=== PATIENT | male | born 1965 | race Caucasian/White ===

== ENCOUNTER 2016-11-20 20:43 | Inpatient (IN) | payer MEDICAID ==
[~2016-11-20] VITALS: Ht 172.7 cm; Wt 93.3 kg
[~2016-11-20 20:43] MED LIST: ESOM20CA31 PO
[2016-11-20 21:46] LABS: BASOPHILS % (AUTO) 0.6 % (0.0-2.0); EOSINOPHILS % (AUTO) 0.5 % (1.0-6.0); HEMATOCRIT 21.9 % (41-53); LYMPHOCYTES # (AUTO) 1.4 K/uL (1.0-4.8); LYMPHOCYTES % (AUTO) 10.2 % (22.0-44.0); MEAN CORPUSCULAR HEMOGLOBIN 30.7 pg (26.0-34.0); MEAN CORPUSCULAR VOLUME 99 fL (80-100); MONOCYTES # (AUTO) 0.8 K/uL (0.1-1.0); MONOCYTES % (AUTO) 6.3 % (2.0-9.0); NEUTROPHILS % (AUTO) 82.4 % (40.0-70.0); PLATELET COUNT (AUTO) 291 K/uL (150-450); RED BLOOD CELL COUNT(AUTO) 2.21 MIL/uL (4.50-5.90); RED CELL DISTRIBUTION WIDTH 16.9 % (11.5-14.5); WHITE BLOOD COUNT (AUTO) 13.4 K/uL (4.5-11.0)
[2016-11-20 21:51] LABS: HEMOGLOBIN 6.8 g/dL (13.5-17.5)
[2016-11-20 21:53] LABS: INR 1.1 (0.9-1.1); PROTHROMBIN TIME 11.7 SEC (9.4-11.6)
[2016-11-20 21:57] LABS: ALANINE AMINOTRANSFERASE 97 U/L (12-78); ALBUMIN 2.7 g/dL (3.4-5.0); ANION GAP 7 mmol/L (8-16); ASPARTATE AMINOTRANSFERASE 127 U/L (15-37); BILIRUBIN,TOTAL 1.3 mg/dL (0.1-1.0); CALCIUM, TOTAL 7.8 mg/dL (8.8-10.5); CARBON DIOXIDE 33 mmol/L (22-29); CHLORIDE 91 mmol/L (98-107); CREATINE KINASE, TOTAL 54 U/L (39-308); CREATININE 0.77 mg/dL (0.60-1.30); GLOMERULAR FILTR. RATE CALC > 60 mL/min (>60); SODIUM SERUM 131 mmol/L (136-145); TOTAL PROTEIN, SERUM 7.1 g/dL (6.4-8.2); UREA NITROGEN, BLOOD 5 mg/dL (7-18)
[2016-11-20 21:59] LABS: POTASSIUM 2.9 mmol/L (3.5-5.1)
[2016-11-20] MEDS ORDERED: POTASSIUM CHLORIDE 20 MEQ ER TABLET PO ONE (22:00)
[2016-11-20 22:41] LABS: ADD UA MICROSCOPIC YES; APPEARANCE,URINE CLEAR (CLEAR); GLUCOSE, URINE (UA) NEGATIVE (NEGATIVE); KETONES,URINE NEGATIVE (NEGATIVE); LEUKOCYTE ESTERASE ,URINE TRACE (NEGATIVE); OCCULT BLOOD,URINE NEGATIVE (NEGATIVE); PROTEIN,URINE NEGATIVE (NEGATIVE)
[2016-11-20 22:48] LABS: RBC,URINE None Seen /HPF (0-2); SQUAMOUS EPITHELIAL CELL,UR Few /LPF (None Seen)
[2016-11-20 23:59] VITALS: BP 107/66
[2016-11-21] VITALS (14 sets, daily range): BP systolic 99–114; BP diastolic 57–70
[2016-11-21] MEDS ORDERED: SODIUM CHLORIDE 0.9% 500 ML IV ONE ×2 (00:01→23:16)
[2016-11-21] MEDS ORDERED: SODIUM CHLORIDE 0.45% 1,000 ML IV SCH (00:03)
[2016-11-21] MEDS ORDERED: ONDANSETRON HCL 4 MG/2 ML VIAL IVP PRN (00:15)
[2016-11-21] MEDS ORDERED: MORPHINE SULFATE 2 MG/ML SYRINGE IVP PRN (00:15)
[2016-11-21] MEDS ORDERED: ZOLPIDEM TARTRATE 5 MG TABLET PO PRN (00:15)
[2016-11-21] MEDS ORDERED: ALBUTEROL SULFATE 2.5 MG/0.5 ML NEB SOLUTION NEB PRN (00:15)
[2016-11-21] MEDS ORDERED: LORazepam 2 MG/ML VIAL IVP PRN (00:15)
[2016-11-21] MEDS ORDERED: BISACODYL 10 MG RECTAL RECTAL SUPPOSITORY PR PRN (00:15)
[2016-11-21] MEDS ORDERED: MAGNESIUM HYDROXIDE SUSPENSION 30 ML UDCUP PO PRN (00:15)
[2016-11-21] MEDS ORDERED: HYDROCODONE/ACETAMINOPHEN 5-325 MG TABLET PO PRN (00:15)
[2016-11-21] MEDS ORDERED: IPRATROPIUM BROMIDE 0.5 MG/2.5 ML NEB SOLUTION NEB PRN (00:15)
[2016-11-21] MEDS ORDERED: DiphenhydrAMINE HCL 25 MG CAPSULE PO ONE (04:00)
[2016-11-21] MEDS: ACETAMINOPHEN 325 MG TABLET PO PRN ×3 (04:08→16:04)
[2016-11-21] MEDS: ChlordiazePOXIDE HCL 25 MG CAPSULE PO SCH ×4 (05:49→23:17)
[2016-11-21] MEDS: PANTOPRAZOLE SODIUM 40 MG/VIAL IVP SCH (08:26)
[2016-11-21] MEDS: MULTIVITAMINS, THERAPEUTIC TABLET PO SCH (08:26)
[2016-11-21] MEDS: THIAMINE HCL 100 MG TABLET PO SCH (08:26)
[2016-11-21] MEDS: DOCUSATE SODIUM 100 MG CAPSULE PO SCH ×2 (08:26→21:00)
[2016-11-21] MEDS: FOLIC ACID 1 MG TABLET PO SCH (08:26)
[2016-11-21] MEDS ORDERED: LIDOCAINE HCL/PF 1% 2 ML VIAL IM ONE (13:45)
[2016-11-21] MEDS ORDERED: CefTRIAXone SODIUM 1 GM/VIAL IM SCH (14:00)
[2016-11-21] MEDS ORDERED: DEXTROSE IV SCH (14:01)
[2016-11-21] MEDS ORDERED: CEFTRIAXONE IV SCH (14:01)
[2016-11-21] MEDS ORDERED: POTASSIUM CHLORIDE 20 MEQ ER TABLET PO ONE (16:00)
[2016-11-21] MEDS: CefTRIAXone 1 GM/DEXTROSE 50 ML IV SCH (16:04)
[2016-11-21] MEDS ORDERED: MAGNESIUM OXIDE 400 MG TABLET PO PRN (22:30)
[2016-11-21] MEDS ORDERED: POTASSIUM CHLORIDE 20 MEQ ER TABLET PO PRN (22:30)
[2016-11-21] MEDS ORDERED: MAGNESIUM SULFATE 4 GM/WATER 100 ML IV PRN (22:30)
[2016-11-21] MEDS ORDERED: MAGNESIUM SULFATE 2 GM in DEXTROSE 5%-WATER 50 ML IV PRN (22:30)
[2016-11-21] MEDS ORDERED: POTASSIUM CHL 10 MEQ/WATER 50 ML IV PRN (22:30)
[2016-11-21 23:16] LABS: BASOPHILS % (AUTO) 0.9 % (0.0-2.0); EOSINOPHILS % (AUTO) 0.9 % (1.0-6.0); HEMATOCRIT 21.7 % (41-53); LYMPHOCYTES # (AUTO) 1.2 K/uL (1.0-4.8); LYMPHOCYTES % (AUTO) 8.5 % (22.0-44.0); MEAN CORPUSCULAR HEMOGLOBIN 30.4 pg (26.0-34.0); MEAN CORPUSCULAR HGB CONC 30.9 G/dL (31.0-37.0); MEAN CORPUSCULAR VOLUME 98 fL (80-100); MONOCYTES # (AUTO) 0.7 K/uL (0.1-1.0); MONOCYTES % (AUTO) 5.2 % (2.0-9.0); NEUTROPHILS # (AUTO) 11.5 K/uL (1.8-7.7); NEUTROPHILS % (AUTO) 84.5 % (40.0-70.0); PLATELET COUNT (AUTO) 247 K/uL (150-450); RED BLOOD CELL COUNT(AUTO) 2.21 MIL/uL (4.50-5.90); RED CELL DISTRIBUTION WIDTH 17.6 % (11.5-14.5); WHITE BLOOD COUNT (AUTO) 13.7 K/uL (4.5-11.0)
[2016-11-21 23:23] LABS: HEMOGLOBIN 6.7 g/dL (13.5-17.5)
[2016-11-21 23:37] LABS: ANION GAP 7 mmol/L (8-16); CALCIUM, TOTAL 7.8 mg/dL (8.8-10.5); CARBON DIOXIDE 30 mmol/L (22-29); CHLORIDE 96 mmol/L (98-107); CREATININE 0.94 mg/dL (0.60-1.30); GLOMERULAR FILTR. RATE CALC > 60 mL/min (>60); POTASSIUM 3.4 mmol/L (3.5-5.1); SODIUM SERUM 133 mmol/L (136-145); UREA NITROGEN, BLOOD 9 mg/dL (7-18)
[2016-11-21 23:42] LABS: ALANINE AMINOTRANSFERASE 69 U/L (12-78); ALBUMIN 2.4 g/dL (3.4-5.0); ASPARTATE AMINOTRANSFERASE 84 U/L (15-37); BILIRUBIN,TOTAL 1.1 mg/dL (0.1-1.0); TOTAL PROTEIN, SERUM 6.5 g/dL (6.4-8.2)
[2016-11-22] VITALS (16 sets, daily range): BP systolic 92–112; BP diastolic 46–77
[2016-11-22] MEDS: ACETAMINOPHEN 325 MG TABLET PO PRN ×2 (00:13→04:05)
[2016-11-22] MEDS: DEXTROSE 5%-0.45% SODIUM CHL 1,000 ML IV SCH ×2 (00:47→15:00)
[2016-11-22] MEDS: ChlordiazePOXIDE HCL 25 MG CAPSULE PO SCH ×4 (06:00→23:29)
[2016-11-22 08:56] LABS: EOSINOPHILS % (AUTO) 1.1 % (1.0-6.0); HEMATOCRIT 23.9 % (41-53); HEMOGLOBIN 7.5 g/dL (13.5-17.5); LYMPHOCYTES # (AUTO) 1.6 K/uL (1.0-4.8); LYMPHOCYTES % (AUTO) 13.1 % (22.0-44.0); MEAN CORPUSCULAR HEMOGLOBIN 30.7 pg (26.0-34.0); MEAN CORPUSCULAR HGB CONC 31.5 G/dL (31.0-37.0); MEAN CORPUSCULAR VOLUME 97 fL (80-100); MONOCYTES # (AUTO) 0.8 K/uL (0.1-1.0); NEUTROPHILS # (AUTO) 9.9 K/uL (1.8-7.7); NEUTROPHILS % (AUTO) 78.8 % (40.0-70.0); PLATELET COUNT (AUTO) 225 K/uL (150-450); RED BLOOD CELL COUNT(AUTO) 2.45 MIL/uL (4.50-5.90); RED CELL DISTRIBUTION WIDTH 17.7 % (11.5-14.5); WHITE BLOOD COUNT (AUTO) 12.5 K/uL (4.5-11.0)
[2016-11-22] MEDS: PANTOPRAZOLE SODIUM 40 MG/VIAL IVP SCH (09:01)
[2016-11-22] MEDS: MULTIVITAMINS, THERAPEUTIC TABLET PO SCH (09:02)
[2016-11-22] MEDS: DOCUSATE SODIUM 100 MG CAPSULE PO SCH ×2 (09:02→20:17)
[2016-11-22] MEDS: THIAMINE HCL 100 MG TABLET PO SCH (09:02)
[2016-11-22] MEDS: FOLIC ACID 1 MG TABLET PO SCH (09:02)
[2016-11-22 09:14] LABS: ALANINE AMINOTRANSFERASE 58 U/L (12-78); ALBUMIN 2.3 g/dL (3.4-5.0); ANION GAP 8 mmol/L (8-16); ASPARTATE AMINOTRANSFERASE 68 U/L (15-37); BILIRUBIN,TOTAL 1.1 mg/dL (0.1-1.0); CALCIUM, TOTAL 7.4 mg/dL (8.8-10.5); CARBON DIOXIDE 28 mmol/L (22-29); CHLORIDE 99 mmol/L (98-107); GLOMERULAR FILTR. RATE CALC > 60 mL/min (>60); POTASSIUM 3.2 mmol/L (3.5-5.1); SODIUM SERUM 135 mmol/L (136-145); UREA NITROGEN, BLOOD 6 mg/dL (7-18)
[2016-11-22 09:24] LABS: RBC MORPHOLOGY COMMENT ABNORMAL RBC MORPH
[2016-11-22] MEDS ORDERED: SODIUM CHLORIDE 0.9% 1,000 ML IV ONE (09:30)
[2016-11-22] MEDS ORDERED: POTASSIUM CHLORIDE 20 MEQ ER TABLET PO ONE (13:30)
[2016-11-22 14:04] LABS: HEPATITIS Bs ANTIGEN SCREEN P Negative (Negative); HEPATITIS C AB SCREEN <0.1 s/co ratio (0.0-0.9)
[2016-11-22] MEDS: CefTRIAXone 1 GM/DEXTROSE 50 ML IV SCH (14:57)
[2016-11-22] MEDS ORDERED: 0.9% SODIUM CHLORIDE 10 ML SYRINGE IVP PRN (17:45)
[2016-11-23] MEDS: ChlordiazePOXIDE HCL 25 MG CAPSULE PO SCH ×2 (04:59→12:32)
[2016-11-23] MEDS: DEXTROSE 5%-0.45% SODIUM CHL 1,000 ML IV SCH (05:13)
[2016-11-23 05:37] VITALS: BP 100/56
[2016-11-23] MEDS ORDERED: SODIUM CHLORIDE 0.9% 1,000 ML IV ONE ×2 (07:00→07:26)
[2016-11-23 07:51] LABS: ALANINE AMINOTRANSFERASE 51 U/L (12-78); ALBUMIN 2.4 g/dL (3.4-5.0); ANION GAP 6 mmol/L (8-16); ASPARTATE AMINOTRANSFERASE 57 U/L (15-37); CALCIUM, TOTAL 7.4 mg/dL (8.8-10.5); CARBON DIOXIDE 29 mmol/L (22-29); CHLORIDE 102 mmol/L (98-107); CREATININE 0.77 mg/dL (0.60-1.30); GLOMERULAR FILTR. RATE CALC > 60 mL/min (>60); POTASSIUM 3.6 mmol/L (3.5-5.1); SODIUM SERUM 137 mmol/L (136-145); TOTAL PROTEIN, SERUM 6.4 g/dL (6.4-8.2); UREA NITROGEN, BLOOD 6 mg/dL (7-18)
[2016-11-23] MEDS ORDERED: PROPRANOLOL HCL 10 MG TABLET PO SCH (09:00)
[2016-11-23 09:17] VITALS: BP 112/67
[2016-11-23] MEDS: THIAMINE HCL 100 MG TABLET PO SCH (09:17)
[2016-11-23] MEDS: DOCUSATE SODIUM 100 MG CAPSULE PO SCH (09:17)
[2016-11-23] MEDS: MULTIVITAMINS, THERAPEUTIC TABLET PO SCH (09:17)
[2016-11-23] MEDS: FOLIC ACID 1 MG TABLET PO SCH (09:17)
[2016-11-23] MEDS: PANTOPRAZOLE SODIUM 40 MG/VIAL IVP SCH (09:18)
[2016-11-23 10:58] VITALS: BP 107/61
[2016-11-23] MEDS: CefTRIAXone 1 GM/DEXTROSE 50 ML IV SCH (15:08)
[2016-11-23 15:10] VITALS: BP 101/63
[2016-11-23] MEDS ORDERED: MULT-1192 PO (16:59)
[2016-11-23] MEDS ORDERED: PANT40TA25 PO (16:59)
[2016-11-23] MEDS ORDERED: THIA100 PO (16:59)
[2016-11-23] MEDS ORDERED: FOLI1 PO (17:00)
[2016-11-23] MEDS ORDERED: PROPOFOL 1% 20 ML VIAL IVP ONE (18:24)
== END 2016-11-23 18:25 | disposition home or self-care (01) | DRG 253 ==
LOC: EMS 20:44 → 6N 22:37
PROVIDERS: ADMIT Hospitalist; ATTEND Hospitalist
PROC: 30233N1 Transfusion of Nonautologous Red Blood Cells into Peripheral Vein, Percutaneous Approach (ICD-10-PCS; 2016-11-20)
PROC: 0DJ08ZZ Inspection of Upper Intestinal Tract, Via Natural or Artificial Opening Endoscopic (ICD-10-PCS; principal; 2016-11-22)
DX: K92.2 Gastrointestinal hemorrhage, unspecified (principal); E43 Unspecified severe protein-calorie malnutrition; K76.6 Portal hypertension; K74.60 Unspecified cirrhosis of liver; E87.1 Hypo-osmolality and hyponatremia; I85.10 Secondary esophageal varices without bleeding; F10.20 Alcohol dependence, uncomplicated; D50.0 Iron deficiency anemia secondary to blood loss (chronic); K25.9 Gastric ulcer, unspecified as acute or chronic, without hemorrhage or perforation; K31.89 Other diseases of stomach and duodenum; Z68.31 Body mass index [BMI] 31.0-31.9, adult
CPT/HCPCS: 76700; 80074; 82105; 83735; 86850; 86880; 86900; 86901; 86920; 87040; 93005; 93306; 99285; C9113; G0480; J0696; J2704; J7030; J7040; P9016